=== PATIENT | male | born 1950 | race Caucasian/White ===

== ENCOUNTER 2020-11-18 16:02 | Outpatient (CLI) | payer MEDICARE | END 2020-11-18 16:03 | disposition home or self-care (01) | LOC: TBSIIMAG 16:02 | PROVIDERS: ATTEND Neurological Surgery | DX: M54.2 Cervicalgia (principal); M47.812 Spondylosis without myelopathy or radiculopathy, cervical region; Z98.1 Arthrodesis status | CPT/HCPCS: 72040 ==

== ENCOUNTER 2022-06-07 06:31 | Day surgery (SDC) | payer MEDICARE ==
[~2022-06-07 06:31] MED LIST: EPINEPHrine 0.3 MG in Ophthalmic Irrigation Solution 500 ML IRR SCH
[2022-06-07] MEDS ORDERED: Phenylephrine 2.5% Ophth Soln 5 ML BOT ONE (07:26)
[2022-06-07] MEDS ORDERED: Cyclopentolate 1% Opth Drop 2 ML BOT ONE (07:26)
[2022-06-07] MEDS ORDERED: PROPOFOL 20 ML ONE (07:56)
[2022-06-07] MEDS ORDERED: CEFAZOLIN 1 GM VIAL ONE (08:47)
[2022-06-07] MEDS ORDERED: Maxitrol 0.1% Opth Oint 3.5 GM TUBE ONE (08:47)
[2022-06-07] MEDS ORDERED: Triamcinolone 40 MG/ML VIAL ONE (08:47)
[2022-06-07] MEDS ORDERED: Bupivacaine 0.75% 10 ML VIAL ONE (08:47)
[2022-06-07] MEDS ORDERED: Lidocaine 1% PF 5 ML VIAL ONE (08:47)
[2022-06-07] MEDS ORDERED: Indocyanine Green 25 MG/10 ML VIAL ONE (08:47)
[2022-06-07] MEDS ORDERED: Lidocaine 4% PF 5 ML AMP ONE (08:47)
== END 2022-06-07 10:05 | disposition home or self-care (01) ==
LOC: SDC 06:31
PROVIDERS: ATTEND Ophthalmology Retina Specialist
PROC: 08T53ZZ Resection of Left Vitreous, Percutaneous Approach (ICD-10-PCS; principal; 2022-06-07)
PROC: 08NF3ZZ Release Left Retina, Percutaneous Approach (ICD-10-PCS; 2022-06-07)
DX: H35.372 Puckering of macula, left eye (principal); I10 Essential (primary) hypertension; E78.5 Hyperlipidemia, unspecified; I25.10 Atherosclerotic heart disease of native coronary artery without angina pectoris; I25.2 Old myocardial infarction; I69.351 Hemiplegia and hemiparesis following cerebral infarction affecting right dominant side; N40.0 Benign prostatic hyperplasia without lower urinary tract symptoms; Z79.899 Other long term (current) drug therapy; Z95.5 Presence of coronary angioplasty implant and graft
CPT/HCPCS: J0171; J0690; J2704; J3301; J3490